=== PATIENT | female | born 1960 | race Asian ===

== ENCOUNTER 2016-11-06 14:55 | Inpatient (IN) | payer BC ==
[~2016-11-06] VITALS: Ht 157.5 cm; Wt 46.7 kg
[2016-11-06 16:14] LABS: UA SPECIFIC GRAVITY >=1.030 (1.005-1.035); microscopic required? YES; urine erythrocyte 2+ (NEGATIVE)
[2016-11-06 18:47] LABS: BASOPHIL % 0.8 % (0-2); PLATELET COUNT 287 x10^3mcL (130-400); RED CELL DISTRIBUTION WIDTH 13.5 % (11.5-14.5)
[2016-11-06 18:49] LABS: CALCIUM 8.6 mg/dL (8.5-10.1); CHLORIDE SERUM 104 mmol/L (98-107); CREATININE SERUM 0.7 mg/dL (0.6-1.0); GFR1 > 60 mL/min; GLUCOSE SERUM 119 mg/dL (74-106); SODIUM SERUM 139 mmol/L (136-145)
[2016-11-06 19:04] LABS: ALBUMIN 3.5 g/dL (3.4-5.0); ALKALINE PHOSPHATASE 98 U/L (46-116); ALT/SGPT 24 U/L (14-59); AST/SGOT 18 U/L (15-37); BILIRUBIN TOTAL 0.84 mg/dL (0.20-1.00); TOTAL PROTEIN, SERUM 7.6 g/dL (6.4-8.2)
[2016-11-06] MEDS ORDERED: VIREAD PO (20:52)
[2016-11-06 22:15] LABS: T3 TOTAL 1.02 ng/mL
[2016-11-06 22:18] LABS: CHOLESTEROL/HDL RATIO 2.7
[2016-11-06 22:21] LABS: FREE T4 1.38 ng/dL (0.76-1.46); FREE THYROXINE INDEX 3.3 ug/dL (1.4-4.5); T4(THYROXINE) 9.9 ug/dL (4.7-13.3)
[2016-11-06 22:49] VITALS: BP 127/67
[2016-11-07 05:24] VITALS: BP 121/69
[2016-11-07 06:17] LABS: BASOPHIL % 0.2 % (0-2); PLATELET COUNT 248 x10^3mcL (130-400); RED CELL DISTRIBUTION WIDTH 13.5 % (11.5-14.5)
[2016-11-07 06:24] LABS: CALCIUM 8.2 mg/dL (8.5-10.1); CHLORIDE SERUM 106 mmol/L (98-107); CREATININE SERUM 0.7 mg/dL (0.6-1.0); GFR1 > 60 mL/min; GLUCOSE SERUM 85 mg/dL (74-106); MAGNESIUM 1.6 mg/dL (1.8-2.4); PHOSPHOROUS 2.8 mg/dL (2.5-4.9); POTASSIUM SERUM 3.4 mmol/L (3.5-5.1); SODIUM SERUM 140 mmol/L (136-145)
[2016-11-07 09:24] VITALS: BP 106/69
[2016-11-07 13:17] VITALS: BP 114/75
[2016-11-07 20:50] VITALS: BP 102/53
[2016-11-08 05:54] VITALS: BP 109/55
[2016-11-08 05:56] LABS: BASOPHIL % 0.1 % (0-2); PLATELET COUNT 251 x10^3mcL (130-400); RED CELL DISTRIBUTION WIDTH 13.4 % (11.5-14.5)
[2016-11-08 06:21] LABS: CALCIUM 8.2 mg/dL (8.5-10.1); CARBON DIOXIDE 24.1 mmol/L (21-32); CHLORIDE SERUM 106 mmol/L (98-107); CREATININE SERUM 0.6 mg/dL (0.6-1.0); GFR1 > 60 mL/min; GLUCOSE SERUM 127 mg/dL (74-106); MAGNESIUM 1.9 mg/dL (1.8-2.4); POTASSIUM SERUM 3.8 mmol/L (3.5-5.1); SODIUM SERUM 139 mmol/L (136-145)
[2016-11-08 06:37] LABS: ALBUMIN 2.5 g/dL (3.4-5.0)
[2016-11-08 09:42] VITALS: BP 119/60
[2016-11-08 17:08] VITALS: BP 125/60
[2016-11-08 20:14] VITALS: BP 115/69
[2016-11-08 21:27] VITALS: BP 114/66
[2016-11-09 05:35] VITALS: BP 130/74
[2016-11-09 06:20] LABS: BASOPHIL % 0.4 % (0-2); PLATELET COUNT 289 x10^3mcL (130-400); RED CELL DISTRIBUTION WIDTH 13.4 % (11.5-14.5)
[2016-11-09 06:28] LABS: CALCIUM 8.1 mg/dL (8.5-10.1); CARBON DIOXIDE 26.6 mmol/L (21-32); CHLORIDE SERUM 107 mmol/L (98-107); CREATININE SERUM 0.6 mg/dL (0.6-1.0); GFR1 > 60 mL/min; GLUCOSE SERUM 111 mg/dL (74-106); MAGNESIUM 1.6 mg/dL (1.8-2.4); PHOSPHOROUS 2.2 mg/dL (2.5-4.9); POTASSIUM SERUM 3.2 mmol/L (3.5-5.1); SODIUM SERUM 142 mmol/L (136-145)
[2016-11-09 08:52] VITALS: Ht 157.5 cm; Wt 46.7 kg
[2016-11-09 09:41] VITALS: BP 115/66
[2016-11-09 16:54] VITALS: BP 108/72
[2016-11-09 19:46] VITALS: BP 121/74
[2016-11-09 21:38] VITALS: BP 110/65
[2016-11-10 05:40] VITALS: BP 122/61
[2016-11-10 06:16] LABS: BASOPHIL % 0.4 % (0-2); PLATELET COUNT 280 x10^3mcL (130-400); RED CELL DISTRIBUTION WIDTH 13.3 % (11.5-14.5)
[2016-11-10 06:32] LABS: CALCIUM 7.9 mg/dL (8.5-10.1); CARBON DIOXIDE 26.9 mmol/L (21-32); CHLORIDE SERUM 109 mmol/L (98-107); CREATININE SERUM 0.6 mg/dL (0.6-1.0); GFR1 > 60 mL/min; GLUCOSE SERUM 101 mg/dL (74-106); MAGNESIUM 2.1 mg/dL (1.8-2.4); POTASSIUM SERUM 3.5 mmol/L (3.5-5.1); SODIUM SERUM 144 mmol/L (136-145)
[2016-11-10 07:44] VITALS: BP 139/78
[2016-11-10 09:10] VITALS: BP 138/66
[2016-11-10 17:15] VITALS: BP 130/82
[2016-11-10 20:12] VITALS: BP 137/77
[2016-11-11 06:02] VITALS: BP 142/77
[2016-11-11 06:17] LABS: BASOPHIL % 0.3 % (0-2); PLATELET COUNT 308 x10^3mcL (130-400); RED CELL DISTRIBUTION WIDTH 13.5 % (11.5-14.5)
[2016-11-11] MEDS ORDERED: LEVOFLOXACIN500 M1 PO (06:29)
[2016-11-11] MEDS ORDERED: LAC PO (06:30)
[2016-11-11] MEDS ORDERED: FLAGYL500 MG PO (06:30)
[2016-11-11] MEDS ORDERED: NORCO1 TA2 PO (06:30)
[2016-11-11] MEDS ORDERED: COLACE100 MG PO (06:31)
[2016-11-11] MEDS ORDERED: TOR10 PO (06:33)
[2016-11-11] MEDS ORDERED: ZOFRAN ODT4 MG SL (08:36)
[2016-11-11 08:59] VITALS: BP 123/75
[2016-11-11 09:15] VITALS: BP 123/75
[2016-11-11 10:25] VITALS: BP 123/75
== END 2016-11-11 11:40 | disposition home or self-care (01) | DRG 338 ==
LOC: ED 14:55 → DU 21:08 → MU 21:08 → DU 22:05 → MU 11-08 06:56
PROVIDERS: Family Medicine; Surgery; ADMIT Family Medicine
PROC: 0DTJ4ZZ Resection of Appendix, Percutaneous Endoscopic Approach (ICD-10-PCS; principal; 2016-11-07 14:00)
DX: K35.3 Acute appendicitis with localized peritonitis (principal); N17.0 Acute kidney failure with tubular necrosis; E43 Unspecified severe protein-calorie malnutrition; B19.10 Unspecified viral hepatitis B without hepatic coma; Z68.1 Body mass index [BMI] 19.9 or less, adult; F17.210 Nicotine dependence, cigarettes, uncomplicated; E03.9 Hypothyroidism, unspecified; E87.6 Hypokalemia; E83.51 Hypocalcemia; E83.42 Hypomagnesemia; D64.9 Anemia, unspecified; J44.9 Chronic obstructive pulmonary disease, unspecified; Z88.0 Allergy status to penicillin; E83.39 Other disorders of phosphorus metabolism
CPT/HCPCS: 82962; 83880; 84439; 94150; J0330; J1885; J1956; J2175; J2250; J2270; J2405; J2704; J2710; J3010; J3475; J3490; J7030; J7040; J7120; Q0092; Q9967